=== PATIENT | female | born 1930 | race Caucasian/White ===

== ENCOUNTER 2018-10-31 20:01 | Emergency (ER) | payer MEDICARE, OTHER ==
[~2018-10-31] VITALS: Ht 162.6 cm; Wt 63.5 kg
[~2018-10-31 20:01] MED LIST: CLON1TAB PO; LOSA50TA39 PO; METO-356 PO; ROSU5TAB PO
[2018-10-31] MEDS ORDERED: ONDANSETRON 4 MG/2 ML VIAL IM ONE (21:15)
[2018-10-31] MEDS ORDERED: HYDROMORPHONE 1 MG/1 ML DISP.SYRIN IM ONE (21:15)
[2018-10-31] MEDS ORDERED: ONDANSETRON 4 MG/2 ML VIAL ONE (21:16)
[2018-10-31] MEDS ORDERED: HYDROMORPHONE 1 MG/1 ML DISP.SYRIN ONE (21:16)
[2018-10-31 21:20] LABS: *BILIRUBIN,URIN NEGATIVE (NEGATIVE); *BLOOD, URINE NEGATIVE (NEGATIVE); *COLOR,URINE YELLOW (YELLOW); *KETONES,URINE NEGATIVE (NEGATIVE); *UROBILINOGEN,URINE 0.2 E.U./dl (NORMAL); LEUKOCYTE ESTERASE ,URINE 1+ (NEGATIVE); NITRITE, URINE NEGATIVE (NEGATIVE); UGLUCOSE NEGATIVE (NEGATIVE)
[2018-10-31 21:25] LABS: *CLARITY,URINE SLIGHTLY HAZY (CLEAR)
[2018-10-31 21:27] LABS: RBC,URINE 0-3 /HPF (0-3); SQUAMOUS EPITHELIAL CELL,UR FEW /HPF (NONE SEEN)
[2018-10-31] MEDS ORDERED: SULFAMETH/TRIMETH 800/160 MG TABLET PO ONE (21:45)
[2018-10-31] MEDS ORDERED: SULFAMETH/TRIMETH 800/160 MG TABLET ONE (21:54)
--- NOTE | 2018-10-31 22:01 | NUR ---
Patient discharged to home in stable conditon. Written and verbal after care instructions given. Patient verbalizes understanding of instructions. Patient ambulated with stable gait. Grand daughter will be driving the patient home.
[2018-10-31 22:04] VITALS: BP 110/80
== END 2018-10-31 22:05 | disposition home or self-care (01) ==
LOC: ER 20:06
DX: N39.0 Urinary tract infection, site not specified (principal); R51 Headache; M54.5 Low back pain; I10 Essential (primary) hypertension; F41.9 Anxiety disorder, unspecified; Z79.899 Other long term (current) drug therapy
CPT/HCPCS: 72072; 81000; 81001; 87086; 96372 ×2; 99283; J1170; J2405; A4663

== ENCOUNTER 2021-03-15 18:25 | Inpatient (IN) | payer MEDICARE, OTHER ==
[~2021-03-15] VITALS: Ht 167.6 cm; Wt 78.5 kg
[2021-03-15] MEDS ORDERED: GABAPENTIN (18:42)
--- NOTE | 2021-03-15 18:49 | NUR ---
Pending MD evaluation, patient is awake, follows simple commands, respiration:easy, moving all extremities
--- NOTE | 2021-03-15 18:59 | NUR ---
Patient is waiting for MD's examination, SBAR to director investor relations nurses Kriss.
[2021-03-15 19:40] LABS: HEMATOCRIT 40.9 % (31.2-41.9); MEAN CORPUSCULAR HEMOGLOBIN 31.1 uug (24.7-32.8); MEAN CORPUSCULAR VOLUME 91.9 fL (75.5-95.3); PLATELET COUNT (AUTO) 155 K/uL (179-408)
[2021-03-15 19:51] LABS: *BILIRUBIN,URIN NEGATIVE (NEGATIVE); *CLARITY,URINE CLEAR (CLEAR); *COLOR,URINE YELLOW (YELLOW); *KETONES,URINE NEGATIVE (NEGATIVE); *UROBILINOGEN,URINE 0.2 E.U./dl (NORMAL); LEUKOCYTE ESTERASE ,URINE NEGATIVE (NEGATIVE); NITRITE, URINE NEGATIVE (NEGATIVE); PH,URINE 5.5 (5.0-8.0); UGLUCOSE NEGATIVE (NEGATIVE)
[2021-03-15 19:51] LABS: CARBON DIOXIDE 28 mmol/L (21-32); CHLORIDE 101 mmol/L (98-107); CREATININE 1.1 mg/dL (0.6-1.3); GLUCOSE 132 mg/dL (74-106); POTASSIUM 4.1 mmol/L (3.5-5.1); UREA NITROGEN, BLOOD 21 mg/dL (7-18)
[2021-03-15 19:54] LABS: *BLOOD, URINE TRACE (NEGATIVE)
[2021-03-15 19:58] LABS: BACTERIA,URINE NONE SEEN /HPF (NONE SEEN); SQUAMOUS EPITHELIAL CELL,UR NONE SEEN /HPF (NONE SEEN); WBC,URINE 0-3 /HPF (0-3)
[2021-03-15 20:04] LABS: MAGNESIUM 2.3 mg/dL (1.8-2.4)
--- NOTE | 2021-03-15 21:36 | NUR ---
Patient out of unit for cy scan and x ray via gurny.
--- NOTE | 2021-03-15 21:58 | NUR ---
Patient back from ct scan with no distres noted.
--- NOTE | 2021-03-15 22:12 | NUR ---
Called [facility] to page Bal Stone DNP.
--- NOTE | 2021-03-15 22:42 | NUR ---
Dr Carney spoke with Bal Stone NP train controller for [facility] who accepted.
--- NOTE | 2021-03-15 23:01 | NUR ---
Patient tolereted meal provided.
[2021-03-15] MEDS ORDERED: ONDANSETRON 4 MG/2 ML VIAL IV PRN (23:15)
[2021-03-15] MEDS ORDERED: Z GUARD REMEDY PASTE 57 GM TUBE TOP PRN (23:15)
[2021-03-16] MEDS: ENOXAPARIN SODIUM 40 MG/0.4 ML DISP.SYRIN SQ SCH ×2 (00:15→20:08)
[2021-03-16] MEDS: ACETAMINOPHEN 325 MG TABLET PO PRN (00:17)
--- NOTE | 2021-03-16 00:17 | NUR ---
Patient requesting tylenol for back pain. Provided comfort measure.
[2021-03-16] MEDS ORDERED: ACETAMINOPHEN 325 MG TABLET ONE (00:22)
[2021-03-16] MEDS ORDERED: ENOXAPARIN SODIUM 40 MG/0.4 ML DISP.SYRIN SQ ONE (00:23)
[2021-03-16] MEDS: IV NS 1000 ML 1,000 ML IV PRN ×2 (07:04→17:05)
[2021-03-16] MEDS: PANTOPRAZOLE SODIUM 40 MG TABLET.DR PO SCH (07:49)
[2021-03-16] MEDS ORDERED: PANTOPRAZOLE SODIUM 40 MG TABLET.DR PO ONE (08:05)
[2021-03-16 08:55] LABS: HEMATOCRIT 40.1 % (31.2-41.9); MEAN CORPUSCULAR VOLUME 90.9 fL (75.5-95.3); PLATELET COUNT (AUTO) 151 K/uL (179-408)
[2021-03-16] MEDS: METOPROLOL SUCCINATE XL 25 MG TAB.SR.24H PO SCH (09:00)
[2021-03-16 09:34] LABS: BILIRUBIN,TOTAL 0.6 mg/dL (0.2-1.0); MAGNESIUM 2.3 mg/dL (1.8-2.4); PHOSPHOROUS 3.2 mg/dL (2.5-4.9); POTASSIUM 3.8 mmol/L (3.5-5.1); TOTAL PROTEIN, SERUM 7.4 g/dL (6.4-8.2)
--- NOTE | 2021-03-16 10:48 | NUR ---
REPORT WAS GIVEN TO [employer] OFFICER. PT WAS TRANSFERED TO ROOM #315.
[2021-03-16] MEDS ORDERED: METOPROLOL SUCCINATE XL 25 MG TAB.SR.24H PO ONE (10:59)
[2021-03-16 12:03] VITALS: BP 143/81
[2021-03-16 16:00] VITALS: BP 142/82
[2021-03-16] MEDS ORDERED: INFLUENZA VACCINE 2021-2022 0.5 ML DISP.SYRIN IM ONE (17:15)
[2021-03-16] MEDS ORDERED: PNEUMOCOCCAL 23-VAL P-SAC VAC 0.5 ML VIAL IM ONE (17:15)
[2021-03-16] MEDS ORDERED: GABA-532 PO (18:40)
[2021-03-16] MEDS ORDERED: LEVO25TA9 PO (18:46)
[2021-03-16] MEDS ORDERED: LOSA25TA27 PO (18:51)
[2021-03-16] MEDS ORDERED: LOSA50TA39 PO (18:52)
[2021-03-16] MEDS ORDERED: CYAN-51 PO (18:54)
[2021-03-16] MEDS ORDERED: DOCU-141 PO (18:54)
[2021-03-16 20:00] VITALS: BP 142/77
[2021-03-16] MEDS ORDERED: ALBUTEROL SULFATE 2.5 MG/3 ML NEBU NEB PRN (21:15)
[2021-03-16] MEDS: LORAZEPAM 0.5 MG TABLET PO PRN (22:56)
--- NOTE | 2021-03-16 22:57 | NUR ---
pt is very restless pulling the iv and jumping out of bed family called pt was not talking to the daughter put the pt oin jed chair and ativan 0.5 mg given per md orders
[2021-03-17] VITALS: BP 144/80
--- NOTE | 2021-03-17 03:29 | NUR ---
patient awake in bed. on tele on and off afib, heart rate 90-100's.
[2021-03-17 04:00] VITALS: BP 141/85
--- NOTE | 2021-03-17 04:00 | NUR ---
patient is still afib with heart rate now 118. patient is very agitated. called out to Crissy castillo for further orders. will continue to monitor and assess.
[2021-03-17] MEDS ORDERED: LORAZEPAM 2 MG/1 ML VIAL IV ONE (05:15)
--- NOTE | 2021-03-17 05:25 | NUR ---
Received orders from anna Woodward. Patient given Ativan 1mg ivp x1. vs 132/70. all other vss.
[2021-03-17] MEDS: PANTOPRAZOLE SODIUM 40 MG TABLET.DR PO SCH (06:03)
[2021-03-17 06:46] LABS: MEAN CORPUSCULAR HEMOGLOBIN 30.8 uug (24.7-32.8); MEAN CORPUSCULAR VOLUME 91.5 fL (75.5-95.3); PLATELET COUNT (AUTO) 154 K/uL (179-408)
[2021-03-17 07:06] LABS: CREATININE 1.1 mg/dL (0.6-1.3); POTASSIUM 3.6 mmol/L (3.5-5.1)
[2021-03-17] MEDS: IV NS 1000 ML 1,000 ML IV PRN ×2 (08:00→20:04)
[2021-03-17] MEDS: LORAZEPAM 0.5 MG TABLET PO PRN (09:41)
[2021-03-17] MEDS: METOPROLOL SUCCINATE XL 25 MG TAB.SR.24H PO SCH (09:42)
[2021-03-17] MEDS: ACETAMINOPHEN 325 MG TABLET PO PRN (12:35)
[2021-03-17 12:58] VITALS: BP 128/75
[2021-03-17 15:56] VITALS: BP 122/61
[2021-03-17] MEDS: ENOXAPARIN SODIUM 40 MG/0.4 ML DISP.SYRIN SQ SCH (20:02)
[2021-03-17 20:28] VITALS: BP 156/69
[2021-03-18 04:35] VITALS: BP 142/77
[2021-03-18] MEDS: PANTOPRAZOLE SODIUM 40 MG TABLET.DR PO SCH (06:03)
[2021-03-18 08:22] LABS: HEMATOCRIT 33.3 % (31.2-41.9); MEAN CORPUSCULAR HEMOGLOBIN 31.4 uug (24.7-32.8); MEAN CORPUSCULAR VOLUME 90.9 fL (75.5-95.3); PLATELET COUNT (AUTO) 149 K/uL (179-408)
--- NOTE | 2021-03-18 08:30 | NUR ---
RECEIVED PATIENT IN BED AWAKE ALERT TO SELF WITH LANGUAGE BARRIER ALL NEEDS ANTICIPATED AND SATISFIED TOTALLY DEPENDENT FOR ALL ADL TURNED AND REPOSITIONED Q2H FOR COMFORT.IVF IS IN PROGRESS ORDERED WITH NO S/S OF INFILTERATION ON SITE MADE COMFORTABLE WILL CONTINUE TO OBSERVE.
[2021-03-18] MEDS: METOPROLOL SUCCINATE XL 25 MG TAB.SR.24H PO SCH (09:01)
[2021-03-18] MEDS: IV NS 1000 ML 1,000 ML IV PRN (11:54)
[2021-03-18 11:59] VITALS: BP 161/72
--- NOTE | 2021-03-18 14:00 | NUR ---
PATIENT SEEN AND EXAMINED BY DR PETERSON MOSS WITH NO NEW ORDERS AT THIS TIME.
[2021-03-18 16:25] VITALS: BP 106/53
--- NOTE | 2021-03-18 18:07 | NUR ---
PATIENTS SON HERE TO VISIT AND STATED THAT THEY ARE LOOKONG FOR A PRISON FACILITY FOR THE PATIENT STATED HAD A CONVERSATION WITH [facility] REPEAT CHIE[facility].
[2021-03-18] MEDS: ENOXAPARIN SODIUM 40 MG/0.4 ML DISP.SYRIN SQ SCH (20:23)
[2021-03-18 20:39] VITALS: BP 124/41
[2021-03-19] MEDS: IV NS 1000 ML 1,000 ML IV PRN (01:17)
[2021-03-19 04:44] VITALS: BP 104/53
[2021-03-19] MEDS: PANTOPRAZOLE SODIUM 40 MG TABLET.DR PO SCH (06:30)
[2021-03-19 07:08] LABS: HEMATOCRIT 33.9 % (31.2-41.9); MEAN CORPUSCULAR HEMOGLOBIN 32.3 uug (24.7-32.8); MEAN CORPUSCULAR VOLUME 91.4 fL (75.5-95.3); PLATELET COUNT (AUTO) 155 K/uL (179-408)
[2021-03-19 07:25] LABS: CREATININE 0.8 mg/dL (0.6-1.3); MAGNESIUM 1.8 mg/dL (1.8-2.4); PHOSPHOROUS 2.6 mg/dL (2.5-4.9); POTASSIUM 3.7 mmol/L (3.5-5.1)
--- NOTE | 2021-03-19 07:36 | NUR ---
RECEIVED PATIENT IN BED ASLEEP BUT IS EASILY AROUSABLE ON ROUND SHE IS ALERT TO SELF BUT IS CONFUSED AND DISORIENTED ALL NEEDS ANTICIPATED AND SATISFIED TURNED AND REPOSITIONED Q2H FOR COMFORT REMAIN ON IVF ORDERED WITH NO S/S OF INFILTERATION ON SITE MADE COMFORTABLE WILL CONTINUE TO OBSERVE.
[2021-03-19] MEDS: METOPROLOL SUCCINATE XL 25 MG TAB.SR.24H PO SCH (09:00)
[2021-03-19 12:01] VITALS: BP 137/72
[2021-03-19] MEDS: LORAZEPAM 0.5 MG TABLET PO PRN (13:33)
--- NOTE | 2021-03-19 13:33 | NUR ---
PATIENT IS VERY CONFUSED AND DISORIENTED IN THE GERICHAIR AFTER HER PHYSICAL THERAPY SESSION THREW THE LUNCH TRAY ON THE BED WITH JUICE AND A LOT OF MESS SEEN TRYING TO GET OUT OF VERONICA/CHAIR ASSISTED INTO BED FIXED MADE COMFORTABLE WITH BED ALARM IN USE BUT IN A FEW MINUTES PATIENT SEEN WITH HER LEGS ON THE FLOOR GETTING OUT OF BED AT RISK FOR FALL PATIENT AT THIS TIME ASSISTED BACK ONTO THE CHAIR AND ATIVAN GIVEN ORDERED WILL OBSERVE.
[2021-03-19] MEDS ORDERED: QUET25TA PO (15:31)
--- NOTE | 2021-03-19 15:45 | NUR ---
ORDER NOTED TO DISCHARGE PATIENT TO [facility] TODAY PATIENTS SON DOMENICO IS HERE AND AWARE.
[2021-03-19 16:00] VITALS: BP 120/54
--- NOTE | 2021-03-19 17:30 | NUR ---
PATIENT DISCHARGED [facility] SATISFACTORY [facility] WITH DISCHARGE INSTRUCTIONS AND ALL HER PERSONAL BELONGINGS INCLUDING HER UPPER AND LOWER DENTURES. Addendum: 03/19/21 at 1833 by ANASTACIO LOPEZ RN ERROR PATIENT WAS DISCHARGED AT 1830
--- NOTE | 2021-03-19 17:45 | NUR ---
CALLED [facility] AND REPORT GIVEN TO MATTI GREEN FOR CONTINUED CARE PATIENT WILL BE PICKED UP BY AMBULANCE ABOUT 1800
== END 2021-03-19 18:30 | DRG 557 ==
LOC: ER 18:40 → TRANSITION 23:36 → TELE3 03-16 10:51 → MEDSURG3 03-17 14:05
PROVIDERS: ADMIT Hospitalist; ATTEND Nurse Practitioner Acute Care
DX: M62.82 Rhabdomyolysis (principal); N17.0 Acute kidney failure with tubular necrosis; E44.1 Mild protein-calorie malnutrition; R55 Syncope and collapse; T46.6X5A Adverse effect of antihyperlipidemic and antiarteriosclerotic drugs, initial encounter; E78.5 Hyperlipidemia, unspecified; E86.0 Dehydration; E88.09 Other disorders of plasma-protein metabolism, not elsewhere classified; F03.90 Unspecified dementia, unspecified severity, without behavioral disturbance, psychotic disturbance, mood disturbance, and anxiety; I10 Essential (primary) hypertension; R53.1 Weakness; Z68.27 Body mass index [BMI] 27.0-27.9, adult; M19.90 Unspecified osteoarthritis, unspecified site; I35.1 Nonrheumatic aortic (valve) insufficiency; W19.XXXA Unspecified fall, initial encounter; Y93.9 Activity, unspecified; Y92.009 Unspecified place in unspecified non-institutional (private) residence as the place of occurrence of the external cause; R29.6 Repeated falls; Z20.822 Contact with and (suspected) exposure to COVID-19
CPT/HCPCS: 36415; 70030-TC; 70450; 71045; 74018; 83735; 84100; 85025; 85730; 90686; 90732; 93005; 93307; 97161; A4663; C1758; G0378; J1650; J2060; J7030

== ENCOUNTER 2021-03-31 13:37 | Inpatient (IN) | payer MEDICARE, OTHER ==
[~2021-03-31] VITALS: Ht 167.6 cm; Wt 77.1 kg
[~2021-03-31 13:37] MED LIST changes: +CYAN-51 PO; +DOCU-141 PO; +GABA-532 PO; +LEVO25TA9 PO; -LOSA50TA39 PO; +QUET25TA PO; -ROSU5TAB PO
--- NOTE | 2021-03-31 14:10 | NUR ---
No ER beds available now and pt is in [place], on [facility].
[2021-03-31 15:41] LABS: HEMATOCRIT 37.6 % (31.2-41.9); MEAN CORPUSCULAR HEMOGLOBIN 30.9 uug (24.7-32.8); MEAN CORPUSCULAR VOLUME 91.1 fL (75.5-95.3); PLATELET COUNT (AUTO) 237 K/uL (179-408)
[2021-03-31] MEDS ORDERED: MORPHINE SULFATE 2 MG/1 ML DISP.SYRIN IV ONE (15:45)
[2021-03-31] MEDS ORDERED: ONDANSETRON 4 MG/2 ML VIAL IV ONE (15:45)
[2021-03-31 15:50] LABS: CARBON DIOXIDE 28 mmol/L (21-32); CHLORIDE 102 mmol/L (98-107); CREATININE 1.2 mg/dL (0.6-1.3); GLUCOSE 118 mg/dL (74-106); POTASSIUM 3.9 mmol/L (3.5-5.1); UREA NITROGEN, BLOOD 15 mg/dL (7-18)
[2021-03-31] MEDS ORDERED: ONDANSETRON 4 MG/2 ML VIAL ONE (15:50)
[2021-03-31] MEDS ORDERED: MORPHINE SULFATE 2 MG/1 ML DISP.SYRIN ONE (15:51)
[2021-03-31 15:56] LABS: ALANINE AMINOTRANSFERASE 12 U/L (14-59); ALKALINE PHOSPHATASE 104 U/L (50-136); ASPARTATE AMINOTRANSFERASE 16 U/L (15-37); BILIRUBIN,DIRECT 0.2 mg/dL (0.0-0.2); BILIRUBIN,TOTAL 0.6 mg/dL (0.2-1.0); TOTAL PROTEIN, SERUM 7.2 g/dL (6.4-8.2)
--- NOTE | 2021-03-31 16:00 | NUR ---
Spoke to Pt's grand daughter,Neeta quiles, per her report no LOC w/fall, and pt has BLE weakness. Pt's family is requesting placement for pt. Neeta can be reached @ [phone].
[2021-03-31 16:26] LABS: LYMPHOCYTES % (MANUAL) 25 % (20-40); MONOCYTES % (MANUAL) 16 % (2-10); NEUTROPHILS % (MANUAL) 59 % (42-75)
--- NOTE | 2021-03-31 19:17 | NUR ---
Hands off report given to sachin Marrero RN.
--- NOTE | 2021-03-31 20:39 | NUR ---
pt moved to room 5a.
--- NOTE | 2021-03-31 21:05 | NUR ---
message left regarding why cat scan results are not ready yet. call to [facility] at [phone]
--- NOTE | 2021-03-31 21:16 | NUR ---
Call to the pts son Alivia and the daughter Anneliese they both say they cannot not get her mother. I told them the Er doctor Angelika states she is stable for discharge.
--- NOTE | 2021-03-31 21:18 | NUR ---
call to EPIC panel doctor for Dr. Carney.
--- NOTE | 2021-03-31 21:28 | NUR ---
Dr. Deng on panel call with Crissy Cantu NP.
--- NOTE | 2021-03-31 21:33 | NUR ---
Spoke with Anneliese Reyes states they want there mother placed in a fpc.
[2021-03-31] MEDS ORDERED: ACETAMINOPHEN 650 MG SUPP.RECT RC PRN (21:45)
[2021-03-31] MEDS ORDERED: QUETIAPINE FUMARATE 25 MG TABLET PO PRN (21:45)
[2021-03-31] MEDS ORDERED: ONDANSETRON 4 MG/2 ML VIAL IV PRN (21:45)
--- NOTE | 2021-03-31 22:00 | NUR ---
pt is admitted to med surg floor under care of [facility].
--- NOTE | 2021-03-31 22:29 | NUR ---
pt placed on 2 liters nc o2 as there is a standing order as her room air saturation is 87 to 88. with o2 her saturation is at 99 percent.
--- NOTE | 2021-04-01 01:42 | NUR ---
pt is in room 4a, pt resting with eyes closed easily awakens, denies pain.
[2021-04-01 06:55] LABS: HEMATOCRIT 40.4 % (31.2-41.9); MEAN CORPUSCULAR VOLUME 91.8 fL (75.5-95.3); PLATELET COUNT (AUTO) 234 K/uL (179-408)
[2021-04-01 07:06] LABS: CARBON DIOXIDE 28 mmol/L (21-32); CHLORIDE 102 mmol/L (98-107); CREATININE 1.4 mg/dL (0.6-1.3); GLUCOSE 114 mg/dL (74-106); POTASSIUM 4.2 mmol/L (3.5-5.1); UREA NITROGEN, BLOOD 18 mg/dL (7-18)
--- NOTE | 2021-04-01 07:07 | NUR ---
report given to day shift rn.
[2021-04-01 07:10] LABS: ALANINE AMINOTRANSFERASE 10 U/L (14-59); ALKALINE PHOSPHATASE 103 U/L (50-136); ASPARTATE AMINOTRANSFERASE 23 U/L (15-37); BILIRUBIN,TOTAL 0.4 mg/dL (0.2-1.0); MAGNESIUM 2.3 mg/dL (1.8-2.4); PHOSPHOROUS 4.5 mg/dL (2.5-4.9); TOTAL PROTEIN, SERUM 7.4 g/dL (6.4-8.2)
--- NOTE | 2021-04-01 07:10 | NUR ---
Recieved pt in bed, sleeping w/ eyes closed, NAD noted.
[2021-04-01] MEDS ORDERED: LEVOTHYROXINE SODIUM 25 MCG TABLET ONE (07:46)
[2021-04-01 07:56] LABS: THYROID STIMULATING HORMONE 0.471 mIU/mL (0.358-3.740)
[2021-04-01] MEDS: LEVOTHYROXINE SODIUM 25 MCG TABLET PO SCH (08:01)
[2021-04-01] MEDS ORDERED: AZITHROMYCIN 250 MG TABLET PO SCH (09:00)
[2021-04-01] MEDS ORDERED: DOCUSATE SODIUM 100 MG CAPSULE PO ONE ×2 (09:44→17:30)
[2021-04-01] MEDS ORDERED: DEXAMETHASONE SOD PHOSPHATE 10 MG INJ ONE (09:45)
[2021-04-01] MEDS ORDERED: CLONAZEPAM 1 MG TABLET ONE ×2 (09:45→17:30)
[2021-04-01] MEDS ORDERED: GABAPENTIN 100 MG CAPSULE ONE (09:45)
[2021-04-01] MEDS ORDERED: CYANOCOBALAMIN 1,000 MCG TABLET ONE (09:45)
[2021-04-01] MEDS ORDERED: AZITHROMYCIN 250 MG TABLET ONE (09:45)
[2021-04-01] MEDS: DEXAMETHASONE SOD PHOSPHATE 4 MG INJ IV SCH ×2 (09:55→22:23)
[2021-04-01] MEDS: CYANOCOBALAMIN 1,000 MCG TABLET PO SCH (09:56)
[2021-04-01] MEDS: GABAPENTIN 100 MG CAPSULE PO SCH (09:56)
[2021-04-01] MEDS: CLONAZEPAM 1 MG TABLET PO SCH ×2 (09:56→17:57)
[2021-04-01] MEDS: AZITHROMYCIN 250 MG TABLET PO SCH (09:56)
[2021-04-01] MEDS: DOCUSATE SODIUM 100 MG CAPSULE PO SCH ×2 (09:56→17:57)
[2021-04-01] MEDS ORDERED: CEFTRIAXONE /D5W 50ML IVPB **ER PYXIS IV ONE (10:08)
[2021-04-01] MEDS: CEFTRIAXONE 1 G in IV DEXTROSE 5% 50 ML IV SCH (10:10)
--- NOTE | 2021-04-01 11:43 | NUR ---
Reposition for comfort, Incontinance care given. No c/o pain at this time.
--- NOTE | 2021-04-01 14:15 | NUR ---
Patient is resting comfortably in bed with eyes closed, NAD noted.
--- NOTE | 2021-04-01 18:33 | NUR ---
Dinner tray provided, pt states having no appettite. Fluids provided.
--- NOTE | 2021-04-01 19:35 | NUR ---
pt awake alert no distress noted.
--- NOTE | 2021-04-01 21:36 | NUR ---
Received patient via gurney, admitted to [facility]. Alert and oriented x1 and confused, but follows directions. On 2 L nasal cannula, saturating 96%. BP: 127/46, H: 98, RR: 17, Tempt 99.1. IV on L hand patent and intact. No signs of pain or distress. Bed in the lowest position, call light within reach, bed alarm on. Will continue to monitor.
--- NOTE | 2021-04-01 21:36 | NUR ---
pt transported to room 304 PETER Laguna in room to accept pt.
[2021-04-01 21:40] VITALS: BP 127/64
[2021-04-02 04:03] VITALS: BP 115/74
[2021-04-02 05:17] LABS: *BILIRUBIN,URIN NEGATIVE (NEGATIVE); *CLARITY,URINE CLEAR (CLEAR); *COLOR,URINE YELLOW (YELLOW); *KETONES,URINE NEGATIVE (NEGATIVE); *UROBILINOGEN,URINE 0.2 E.U./dl (NORMAL); LEUKOCYTE ESTERASE ,URINE NEGATIVE (NEGATIVE); NITRITE, URINE NEGATIVE (NEGATIVE); PH,URINE 5.5 (5.0-8.0); UGLUCOSE NEGATIVE (NEGATIVE)
[2021-04-02] MEDS: LEVOTHYROXINE SODIUM 25 MCG TABLET PO SCH (06:00)
[2021-04-02 06:22] LABS: *BLOOD, URINE TRACE (NEGATIVE)
[2021-04-02 06:29] LABS: BACTERIA,URINE NONE SEEN /HPF (NONE SEEN); SQUAMOUS EPITHELIAL CELL,UR FEW /HPF (NONE SEEN); URINE AMORPHOUS URATE MODERATE /HPF; WBC,URINE 0-3 /HPF (0-3)
[2021-04-02 07:22] LABS: HEMATOCRIT 41.4 % (31.2-41.9); MEAN CORPUSCULAR HEMOGLOBIN 30.7 uug (24.7-32.8); MEAN CORPUSCULAR VOLUME 91.7 fL (75.5-95.3); PLATELET COUNT (AUTO) 209 K/uL (179-408)
[2021-04-02 07:40] LABS: CARBON DIOXIDE 28 mmol/L (21-32); CHLORIDE 101 mmol/L (98-107); CREATININE 1.9 mg/dL (0.6-1.3); GLUCOSE 161 mg/dL (74-106); MAGNESIUM 2.4 mg/dL (1.8-2.4); UREA NITROGEN, BLOOD 33 mg/dL (7-18)
--- NOTE | 2021-04-02 08:00 | NUR ---
received resting in bed with eyes closed but arouses when name was called, on 2l/nc- sat at 96%, no distress noted, on droplet isolation for covid, safety measures maintained
[2021-04-02] MEDS: DEXAMETHASONE SOD PHOSPHATE 4 MG INJ IV SCH ×2 (08:17→20:29)
[2021-04-02] MEDS: GABAPENTIN 100 MG CAPSULE PO SCH (08:17)
[2021-04-02] MEDS: AZITHROMYCIN 250 MG TABLET PO SCH (08:20)
[2021-04-02] MEDS: CLONAZEPAM 1 MG TABLET PO SCH ×2 (08:20→17:18)
[2021-04-02] MEDS: DOCUSATE SODIUM 100 MG CAPSULE PO SCH ×2 (08:20→17:18)
[2021-04-02] MEDS: CYANOCOBALAMIN 1,000 MCG TABLET PO SCH (09:02)
[2021-04-02] MEDS: CEFTRIAXONE 1 G in IV DEXTROSE 5% 50 ML IV SCH (09:34)
[2021-04-02 12:00] VITALS: BP 116/75
--- NOTE | 2021-04-02 12:00 | NUR ---
repositioned for comfort and for meals, aspiration precautions observed
[2021-04-02] MEDS: IV 1/2NS 1000 ML 1,000 ML IV PRN (13:52)
[2021-04-02 16:00] VITALS: BP 102/66
--- NOTE | 2021-04-02 18:30 | NUR ---
incontinent of large amount of urine, changed, bladder scan done- obtained 46ml, no distress noted, all needs attended and dmet, safety measures in place
--- NOTE | 2021-04-02 19:30 | NUR ---
Received pt resting in bed. On 2L NC saturating at 95%. No acute distress noted. IV in L Wrist intact and running 1/2 NS at 65mls/hr. Droplet precautions. Call lights within reach, safety measures initiated.
[2021-04-02 20:00] VITALS: BP 120/76
[2021-04-03 05:07] VITALS: BP 110/62
[2021-04-03] MEDS: IV 1/2NS 1000 ML 1,000 ML IV PRN (05:32)
--- NOTE | 2021-04-03 06:17 | NUR ---
Slept throughout the night. ON 2L NC saturating at 96%. No signs of acute distress. Compliant with care and medication. IV in L wrist, patent and running 1/2 NS. Incontinent urine, bladder scan done, obtained 152 ml. Needs attended. Call lights within reach. Safety measures maintained. Will endorse to am shift.
[2021-04-03] MEDS: LEVOTHYROXINE SODIUM 25 MCG TABLET PO SCH (06:26)
--- NOTE | 2021-04-03 07:30 | NUR ---
Received report from PM nurse, Rosie RN. Arrived to patient resting comfortably in bed with no signs of distress or discomfort. Patient receiving 2L of oxygen via nasal canula. Bed left in lowest position with call light within reach. Comfort measures provided.
[2021-04-03 07:53] LABS: HEMATOCRIT 39.5 % (31.2-41.9); MEAN CORPUSCULAR HEMOGLOBIN 30.8 uug (24.7-32.8); MEAN CORPUSCULAR VOLUME 91.1 fL (75.5-95.3); PLATELET COUNT (AUTO) 184 K/uL (179-408)
[2021-04-03 08:06] LABS: CARBON DIOXIDE 27 mmol/L (21-32); CHLORIDE 102 mmol/L (98-107); CREATININE 1.6 mg/dL (0.6-1.3); GLUCOSE 128 mg/dL (74-106); MAGNESIUM 2.5 mg/dL (1.8-2.4); POTASSIUM 5.3 mmol/L (3.5-5.1); UREA NITROGEN, BLOOD 49 mg/dL (7-18)
[2021-04-03] MEDS: AZITHROMYCIN 250 MG TABLET PO SCH (08:08)
[2021-04-03] MEDS: DOCUSATE SODIUM 100 MG CAPSULE PO SCH ×2 (08:08→16:35)
[2021-04-03] MEDS: CYANOCOBALAMIN 1,000 MCG TABLET PO SCH (08:08)
[2021-04-03] MEDS: CLONAZEPAM 1 MG TABLET PO SCH ×2 (08:08→16:35)
[2021-04-03] MEDS: GABAPENTIN 100 MG CAPSULE PO SCH (08:08)
[2021-04-03] MEDS: DEXAMETHASONE SOD PHOSPHATE 4 MG INJ IV SCH ×2 (08:08→20:17)
[2021-04-03] MEDS: CEFTRIAXONE 1 G in IV DEXTROSE 5% 50 ML IV SCH (10:29)
[2021-04-03 12:30] VITALS: BP 125/75
--- NOTE | 2021-04-03 13:15 | NUR ---
Orders to perform bladder scan on patient after void. Patient refused bladder scan 3 times and continued to get more aggressive. Doctor notified. Will attempt again later.
[2021-04-03 16:00] VITALS: BP 114/73
--- NOTE | 2021-04-03 18:33 | NUR ---
Bladder scan reveals 79cc of urine in the bladder. Will endorse to night shift manager nurse that the Doctor should be notified if 300cc or urine in the bladder after urinating. Patient is on a diaper.
--- NOTE | 2021-04-03 19:30 | NUR ---
On 2L NC saturating at 93%. IV in L wrist running 0.45% NS at 65 ml/hr. No signs of acute distress noted. Droplet precautions. Call lights within reach. Safety measures initiated.
[2021-04-03 20:14] VITALS: BP 116/68
[2021-04-03] MEDS: HEPARIN SODIUM,PORCINE 5,000 UNITS/ML VIAL SQ SCH (20:20)
[2021-04-04] MEDS: IV 1/2NS 1000 ML 1,000 ML IV PRN ×2 (01:48→15:23)
[2021-04-04 04:00] VITALS: BP 146/83
--- NOTE | 2021-04-04 05:15 | NUR ---
Slept comfortably through the night, on 2L NC saturating at 92-93%. No signs of acute distress. Able to make needs known. Bladder scan completed, 249ml obtained. IV in L wrist running 0.45% NS intact and tolerating. Compliant with medication and care. Call lights within reach, safety measures maintained. Will endorse to am shift.
[2021-04-04] MEDS: LEVOTHYROXINE SODIUM 25 MCG TABLET PO SCH (06:30)
[2021-04-04 06:41] LABS: MEAN CORPUSCULAR VOLUME 91.2 fL (75.5-95.3); PLATELET COUNT (AUTO) 179 K/uL (179-408)
[2021-04-04 06:52] LABS: CREATININE 1.2 mg/dL (0.6-1.3); MAGNESIUM 2.2 mg/dL (1.8-2.4); POTASSIUM 4.9 mmol/L (3.5-5.1)
[2021-04-04] MEDS: DEXAMETHASONE SOD PHOSPHATE 4 MG INJ IV SCH (08:59)
[2021-04-04] MEDS: GABAPENTIN 100 MG CAPSULE PO SCH (09:01)
[2021-04-04] MEDS: AZITHROMYCIN 250 MG TABLET PO SCH (09:01)
[2021-04-04] MEDS: CLONAZEPAM 1 MG TABLET PO SCH ×2 (09:01→17:02)
[2021-04-04] MEDS: DOCUSATE SODIUM 100 MG CAPSULE PO SCH ×2 (09:01→17:02)
[2021-04-04] MEDS: HEPARIN SODIUM,PORCINE 5,000 UNITS/ML VIAL SQ SCH ×2 (09:08→21:42)
[2021-04-04] MEDS: CYANOCOBALAMIN 1,000 MCG TABLET PO SCH (09:09)
[2021-04-04] MEDS: CEFTRIAXONE 1 G in IV DEXTROSE 5% 50 ML IV SCH (09:45)
[2021-04-04 12:18] VITALS: BP 159/87
[2021-04-04 16:00] VITALS: BP 149/88
--- NOTE | 2021-04-04 18:15 | NUR ---
Received a called from PT,s son Yolanda requesting for her mom B/P meds that she takes at home notified Vasile with new order to make a home med reconciliation order as per son she is on losartan 25 mg at [facility] and 50 mg at HS order noted
[2021-04-04] MEDS ORDERED: LOSA50TA39 PO (18:27)
[2021-04-04] MEDS ORDERED: LOSA25TA27 PO (18:27)
[2021-04-04 20:00] VITALS: BP 157/90
[2021-04-05 04:51] VITALS: BP 124/76
--- NOTE | 2021-04-05 05:59 | NUR ---
Pt slept through the night. No s/s of acute distress. Comfort care and needs attended. Vitals stable on 2L NC tolerating well. PIV on L wrist intact. Isolation precaution maintained. Safety measures in place. Will continue with the plan of care.
[2021-04-05] MEDS: LEVOTHYROXINE SODIUM 25 MCG TABLET PO SCH (06:19)
[2021-04-05 08:01] LABS: HEMATOCRIT 37.7 % (31.2-41.9); MEAN CORPUSCULAR HEMOGLOBIN 30.9 uug (24.7-32.8); MEAN CORPUSCULAR VOLUME 90.9 fL (75.5-95.3); PLATELET COUNT (AUTO) 160 K/uL (179-408)
[2021-04-05 08:21] LABS: CREATININE 0.9 mg/dL (0.6-1.3); MAGNESIUM 2.2 mg/dL (1.8-2.4); POTASSIUM 4.7 mmol/L (3.5-5.1)
[2021-04-05] MEDS ORDERED: DEXAMETHASONE SOD PHOSPHATE 4 MG INJ IV SCH (09:00)
[2021-04-05] MEDS: GABAPENTIN 100 MG CAPSULE PO SCH (09:28)
[2021-04-05] MEDS: DOCUSATE SODIUM 100 MG CAPSULE PO SCH (09:29)
[2021-04-05] MEDS: AZITHROMYCIN 250 MG TABLET PO SCH (09:29)
[2021-04-05] MEDS: CYANOCOBALAMIN 1,000 MCG TABLET PO SCH (09:29)
[2021-04-05] MEDS: CLONAZEPAM 1 MG TABLET PO SCH (09:29)
[2021-04-05] MEDS: HEPARIN SODIUM,PORCINE 5,000 UNITS/ML VIAL SQ SCH (09:32)
[2021-04-05] MEDS: CEFTRIAXONE 1 G in IV DEXTROSE 5% 50 ML IV SCH (09:44)
--- NOTE | 2021-04-05 11:00 | NUR ---
pt is a/o x 2-3, Farsi speaking. Pt tolerated portion of her food, is able to take medications whole, no aspiration during fluid intake. Plan is to find placement in SNF upon discharge, customer account manager is in contact with family member to resolve placement. Pt continues to be asymptomatic for Covid. Comfort measures provided, call light within reach. Will continue to monitor pt.
[2021-04-05 11:39] VITALS: BP 174/103
[2021-04-05] MEDS ORDERED: ACIDOPHILUS/BULGARICUS CHEW TAB PO SCH (12:00)
[2021-04-05] MEDS ORDERED: AMOXICILLIN-CLAVUL 875-125MG TABLET PO SCH (12:00)
[2021-04-05 15:00] VITALS: BP 150/95
--- NOTE | 2021-04-05 15:37 | NUR ---
pt is being discharged, vitals [id number]/90, HR 82, respirations 18, saturating 93% on 2L NC. Pt is being discharged to [facility] via [facility] ambulance services, report given to RN [employer] Flake Miller Alehsa. All belongings at hand, discharge education, labs, and reports included in packet given to EMT for facility. Pt is not in any acute distress. a/o x 2 Farsi speaking. Family notified by protective services case worker of transfer. Facility aware that pt is Covid positive. pt admitting to Covid unit in room 31C.
[2021-04-05] MEDS ORDERED: ENSURE ENLIVE (VAN) 240 ML LIQUID PO SCH (17:00)
== END 2021-04-05 15:45 | DRG 177 ==
LOC: ER 13:49 → TRANSITION 04-01 04:12 → MEDSURG3 04-01 21:01
PROVIDERS: ADMIT Registered Nurse; ATTEND Nurse Practitioner Family
DX: U07.1 COVID-19 (principal); J96.01 Acute respiratory failure with hypoxia; N17.0 Acute kidney failure with tubular necrosis; N39.0 Urinary tract infection, site not specified; Z16.24 Resistance to multiple antibiotics; R62.7 Adult failure to thrive; Z68.27 Body mass index [BMI] 27.0-27.9, adult; R29.6 Repeated falls; E03.9 Hypothyroidism, unspecified; R53.1 Weakness; F03.90 Unspecified dementia, unspecified severity, without behavioral disturbance, psychotic disturbance, mood disturbance, and anxiety; I10 Essential (primary) hypertension; E86.1 Hypovolemia; M17.0 Bilateral primary osteoarthritis of knee; B96.1 Klebsiella pneumoniae [K. pneumoniae] as the cause of diseases classified elsewhere; M43.13 Spondylolisthesis, cervicothoracic region; W18.30XA Fall on same level, unspecified, initial encounter; Y93.9 Activity, unspecified; Y92.009 Unspecified place in unspecified non-institutional (private) residence as the place of occurrence of the external cause
CPT/HCPCS: 36415; 70030-TC; 70450; 71045; 72125; 72131; 83605; 83735; 84100; 84443; 85025; 85730; 86140; 87040; 87077; 87086; 93005; 97161; A4663; G0378; J0696; J1100; J1644; J2270; J2405; J3490; J7060; Q0144